=== PATIENT | female | born 1995 | race Caucasian/White ===

== ENCOUNTER → 2016-12-15 | Outpatient (REF) ==
[~2016-12-15] MED LIST: NEXPLANON68 MG ID
== END ==
LOC: WSOH 09:15
DX: Z02.89 Encounter for other administrative examinations (principal)

== ENCOUNTER → 2017-02-22 | Outpatient (REF) | LOC: WSOH 14:38 | DX: Z00.00 Encounter for general adult medical examination without abnormal findings (principal) ==

== ENCOUNTER 2017-08-08 19:54 | Emergency (ER) | payer BC ==
[~2017-08-08] VITALS: Ht 170.2 cm; Wt 90.9 kg
[2017-08-08 20:00] VITALS: BP 162/68; TEMP 98.8
[2017-08-08] MEDS ORDERED: NEXPLANON68 MG ID (21:11)
[2017-08-08 21:39] VITALS: PULSE 67
== END 2017-08-08 21:40 | disposition home or self-care (01) ==
LOC: COL.ER 19:54
DX: S93.402A Sprain of unspecified ligament of left ankle, initial encounter (principal); S90.31XA Contusion of right foot, initial encounter; Z98.890 Other specified postprocedural states; X50.0XXA Overexertion from strenuous movement or load, initial encounter; W10.9XXA Fall (on) (from) unspecified stairs and steps, initial encounter

== ENCOUNTER 2018-03-01 00:07 | Emergency (ER) | payer BC ==
[~2018-03-01] VITALS: Ht 170.2 cm; Wt 80.9 kg
[2018-03-01 00:14] VITALS: BP 140/110; TEMP 97.9
[2018-03-01 01:07] LABS: COLLECTION METHOD CLEAN CATCH
[2018-03-01 01:11] LABS: BASO % 0.3 % (0.0-2.0); EOS % 0.2 % (0-4.0); GRAN # 8.6 (1.4-6.5); GRAN % 90.9 % (42.2-75.2); HEMOGLOBIN 15.2 g/dl (12.5-16.0); LYMPH # 0.3 (1.2-3.4); LYMPH % 2.9 % (20.0-51.0); MEAN CELL VOLUME 84 fl (80.0-100.0); MEAN CORPUSCULAR HEMOGLOBIN 29 pg (27.0-31.0); MEAN CORPUSCULAR HGB CONC 34 g/dl (33.0-37.0); MEAN PLATELET VOLUME 9.1 fl (7.4-10.4); MONO # 0.5 (0.1-0.6); MONO % 5.4 % (1.7-9.3); PLATELET COUNT 209 K/mm3 (130-400); RED BLOOD COUNT 5.34 M/mm3 (4.10-5.30); REDCELL DISTRIBUTION WIDTH-CV 13.1 % (11.5-14.5)
[2018-03-01 01:24] LABS: PH 5 (5-8); URINE APPEARANCE Clear; URINE COLOR Straw; URINE PROTEIN(semi-quant) 1+ (NEGATIVE)
[2018-03-01 01:25] LABS: ALBUMIN 4.9 gm/dL (3.5-5.0); BILIRUBIN,TOTAL 0.8 mg/dL (0.0-1.0); CREATININE, serum 0.84 mg/dL (0.52-1.25); POTASSIUM 3.8 mmol/L (3.4-5.0); TOTAL PROTEIN 8.7 gm/dL (6.4-8.2)
[2018-03-01 01:25] LABS: URINE BILIRUBIN Positive (NEGATIVE); URINE BLOOD Negative (NEGATIVE); URINE GLUCOSE Negative (NEGATIVE); URINE KETONE 2+ (NEGATIVE); URINE LEUKOCYTE ESTERASE Trace (NEGATIVE); URINE NITRATE Negative (NEGATIVE); URINE RBC None Seen /hpf; URINE UROBILINOGEN Negative (NEGATIVE)
[2018-03-01 01:26] LABS: MUCOUS Present /lpf; URINE BACTERIA Moderate /hpf
[2018-03-01] MEDS ORDERED: ZOFRAN 4MG T4 MG/TAB PO (03:27)
[2018-03-01 03:44] VITALS: PULSE 89
== END 2018-03-01 03:46 | disposition home or self-care (01) ==
LOC: COL.ER 00:07
PROVIDERS: Emergency Medicine
DX: R10.10 Upper abdominal pain, unspecified (principal); R11.2 Nausea with vomiting, unspecified; R19.7 Diarrhea, unspecified
CPT/HCPCS: J1885; J2405; J7030